=== PATIENT | female | born 1970 | race Caucasian/White ===

== ENCOUNTER 2017-01-10 21:52 | Emergency (ER) | payer SELFPAY ==
[~2017-01-10] VITALS: Ht 157.5 cm; Wt 72.5 kg
[~2017-01-10 21:52] MED LIST: ACET500T98 PO; BACTDS PO; CEPH-443 PO; D-ME118S6 PO; HYDR-1666 PO; IBUP-1542 PO; IBUP800T25 PO
[2017-01-10 22:34] VITALS: Ht 157.5 cm; Wt 72.5 kg
== END 2017-01-11 00:27 | disposition left against medical advice (07) ==
LOC: FTE 21:52
DX: Z53.21 Procedure and treatment not carried out due to patient leaving prior to being seen by health care provider (principal)